=== PATIENT | male | born 1960 ===

== ENCOUNTER 2025-03-19 06:22 | Day surgery (SDC) | payer OTHER, SELFPAY | END 2025-03-19 11:16 | disposition home or self-care (01) | LOC: GI 06:22 | PROVIDERS: ATTENDING PHYSICIAN Internal Medicine Gastroenterology; FAMILY PHYSICIAN Family Medicine | DX: R13.10 Dysphagia, unspecified (principal); K22.2 Esophageal obstruction; K22.89 Other specified disease of esophagus; K20.0 Eosinophilic esophagitis | CPT/HCPCS: 43239; 88305 ==